=== PATIENT | male | born 1945 | race Hispanic/Latino ===

== ENCOUNTER 2016-12-08 09:33 | Inpatient (IN) | payer MEDICARE ==
[2016-12-08 10:01] LABS: #Eosinphils 0.1 thou/uL (0.0-0.7); #Lymphocytes 1.3 thou/uL (1.20-3.40); #Monocytes 0.5 thou/uL (0.11-0.59); #Neutrophils 8.2 thou/uL (1.40-6.50); %Basophils 0.3 % (0.0-1.0); %Eosinophils 0.8 % (0.0-10.0); %Lymphocytes 12.6 % (21.0-51.0); %Monocytes 4.6 % (0.0-10.0); Hematocrit 40.7 % (42.0-52.0); Mean Platelet Volume 6.4 fL (7.4-10.4); Red Blood Cell (RBC) Count 4.23 mill/uL (4.70-6.10); White Blood Cell (WBC) Count 10.1 thou/uL (4.8-10.8)
[2016-12-08] MEDS ORDERED: methylPREDNISolone Sod Succ/PF 125 MG/2 ML VIAL ONE (10:16)
[2016-12-08] MEDS ORDERED: Water For Inject, Bacteriostat 30 ML ONE (10:16)
--- NOTE | 2016-12-08 10:22 | RAD ---
PORTABLE CHEST ONE VIEW: Date: 12-08-16 Time: 10:08 a.m. History: Dyspnea. FINDINGS/IMPRESSION: There are no previous exams for comparison. The heart size is borderline. There are prominent inters titial markings on both sides which may be due to acute or chronic changes. There are degenerative c hanges in the spine. No pneumothoraces or large effusions are seen. There is no lobar consolidation. POS: [facility]
[2016-12-08 10:26] LABS: Troponin I Less than 0.010 ng/mL (< 0.028)
[2016-12-08 10:31] LABS: ALT (SGPT) 12 U/L (8-55); AST (SGOT) 22 U/L (5-34); Alkaline Phosphatase 98 U/L (40-150); Anion Gap 14 mmol/L (10-20); BUN (Urea Nitrogen) 20 mg/dL (8.4-25.7); Bilirubin, Total 0.9 mg/dL (0.2-1.2); CK (CPK) 35 U/L (30-200); Calc. Creatinine Clearance 0 mL/min (70-130); Carbon Dioxide 26 mmol/L (23-31); Chloride 101 mmol/L (98-107); Estimated GFR-MDRD 55; Globulin 5.7 g/dL (2.4-3.5); Lipase 36 U/L (8-78); Protein, Total 9.1 g/dL (5.8-8.1)
--- NOTE | 2016-12-08 12:23 | CT ---
CT ARTERIOGRAM CHEST WITH IV CONTRAST AND 3D MIP IMAGING: HISTORY: Worsening dyspnea. FINDINGS: There is good contrast opacification of the pulmonary arteries and thoracic aorta with normal branch ing of the great vessels from the aortic arch. There is calcification in the arterial structures. Extensive interstitial thickening and scarring with extensive bilateral honeycombing is present thro ughout each lung. Slightly enlarged lymph nodes throughout the mediastinum measuring up to 2.0 cm g reatest diameter at the precarinal level. Within the partially visualized upper abdomen, there is e nlargement of the spleen and nodular contour of the liver. IMPRESSION: 1. No CT evidence of pulmonary embolus. 2. Severe interstitial lung disease with end stage honeycombing. 3. Nonspecific enlarged lymph nodes scattered throughout the mediastinum. 4. Atherosclerosis. 5. Cirrhosis. POS: [facility]
[2016-12-08] MEDS ORDERED: ISOVUE-370 76%-LOCM 1 ML ONE (15:00)
[2016-12-08] MEDS ORDERED: Dextrose 5% in Water 1,000 ML IV PRN (15:44)
[2016-12-08] MEDS ORDERED: HumaLOG 300 UNITS/3 ML VIAL SC PRN (15:44)
[2016-12-08] MEDS ORDERED: Dextrose 50% Abboject 50 ML SYRINGE SLOW IVP PRN (15:44)
[2016-12-08] MEDS ORDERED: Ondansetron ODT 4 MG TAB PO PRN (15:44)
[2016-12-08 16:06] LABS: Oxyhemoglobin 95.7 % (94.0-97.0); Sodium 138 mmol/L (135-148)
[2016-12-08 16:08] LABS: Mode NC; Modified Allen's Test POSITIVE; Vent NO
[2016-12-08 17:01] VITALS: BMI 21.0
[2016-12-08] MEDS ORDERED: Bisacodyl 5 MG TAB PO PRN (19:02)
--- NOTE | 2016-12-09 01:11 | HP-2 ---
CODE STATUS: DNR/DNI. PRIMARY CARE PHYSICIAN: Lamine Nicole D.O., at [facility]. ATTENDING PHYSICIAN: Kellie Marin M.D. PGY1: Bree Eli D.O. CHIEF COMPLAINT: Shortness of breath. HISTORY OF PRESENT ILLNESS: This is a 71-year-old male with past medical history of diabetes mellitus type 2, essential hypertension and hyperlipidemia who presents with progressive shortness of breath for the past 3 weeks, which has worsened over the past couple of days. He also endorses fatigue. He was seen in clinic approximately 2-3 days ago and was provided steroid Dose pack and encouraged to use inhaler. He has used his inhaler multiple times within the past few days and found no relief of symptoms. Over the past 6 months, he has lost 20 pounds. Two weeks ago, he lost his appetite and has been unable to eat adequate amount of food. Symptoms are associated with dry cough, which is worse at night. In the ER, he was given nebulizer treatment, which provided no relief in the symptoms. Of note, Dr. Anthony, dumper bailer operator was consulted in the Emergency Department after CT was reviewed and showed evidence of severe end -stage interstitial lung disease. Dr. Anthony stated that patient could be seen outpatient as long as he was not hypoxic. However, the patient was hypoxic at 85% on room air and was requiring supplemental oxygen. PAST MEDICAL HISTORY: 1. Type 2 diabetes mellitus with mononeuropathy. 2. Diabetic nephropathy. 3. Essential hypertension. 4. Hyperlipidemia. PAST SURGICAL HISTORY: None. ALLERGIES: No known drug allergies. MEDICATIONS: 1. Amlodipine 5 mg daily. 2. Glyburide-metformin 5-500 mg b.i.d. 3. Losartan 50 mg daily. 4. Aspirin 81 mg daily. 5. Gabapentin 300 mg t.i.d. 6. Atorvastatin 40 mg daily. 7. Proventil HFA 90 mcg 2 puff inhalation q.4 hours p.r.n. FAMILY HISTORY: Brother and sister with diabetes mellitus type 2. SOCIAL HISTORY: The patient is a former smoker. He smoked half a pack per day for 30 years and quit in the . He endorses drinking 16 ounces of beer every evening. He denies any drug use. Of note, patient worked in construction. REVIEW OF SYSTEMS: A 12-point review of systems was performed. All were negative except as listed in the HPI and as indicated below. The patient endorses 20-pound weight loss in the last 6 months, severe fatigue and cough which has recently been productive, shortness of breath and exercise intolerance , paroxysmal nocturnal dyspnea, orthopnea, pain in calves when walking and neuropathy. PHYSICAL EXAMINATION: VITAL SIGNS: Blood pressure 121/69, pulse 62, respiratory rate 20, T-max 97.6 and pulse ox 95% on 2 liters. Current weight 59 kilograms. GENERAL: Patient is alert and oriented x3, no acute distress. He is appropriately interactive. EYES: Pupils are equally round and reactive to light and accommodation. Extraocular muscles are intact. Conjunctivae within normal limits. ENT: Nasal mucosa within normal limits. Oropharynx within normal limits. Of note, the patient has poor dentition. NECK: Neck is supple, without lymphadenopathy, thyromegaly or bruits. CARDIOVASCULAR: Regular rate and rhythm, 2/6 systolic murmur. No gallop. Radial pulses and pedal pulses are weak. RESPIRATORY: Normal respiratory effort. No retractions. Patient has Velcro rales diffusely throughout posterior lungs. SKIN: Skin is warm and dry. No cyanosis, no lesions; however, there is decreased hair growth in the lower extremities bilaterally. Extremities are cool to touch. The patient does have several tattoos. ABDOMEN: Abdomen is soft and nontender to palpation. Bowel sounds positive in all 4 quadrants. No masses or distention. No CVA tenderness. EXTREMITIES: No clubbing, cyanosis or edema. MUSCULOSKELETAL: Structure within normal limits. Tone within normal limits. The patient has full range of motion. NEUROLOGIC: No focal deficits. The patient does have neuropathy bilateral lower extremities. Cranial nerves II-XII intact. GCS 15. PSYCHIATRIC: Appropriate. LABORATORY AND IMAGING DATA: 1. CBC: White blood cell count 10.1, hemoglobin 13.9, hematocrit 40.7 and platelets 243. 2. CMP: Sodium 137, potassium 4.2, chloride 101, bicarb 26, BUN 20, creatinine 1.28, glucose 179, calcium 10, total bilirubin 0.9, total protein 9.2 , albumin 3.4, AST 22, ALT 12 and alkaline phosphatase 98. 3. CPK 35. 4. CK-MB 0.8, troponin less than 0.010. 5. Lipase 36. 6. BNP 85.2. 7. D-dimer 1.87. 8. Chest x-ray shows prominent interstitial markings on both sides. 9. CT angio shows no pulmonary embolism; however, there is severe interstitial lung disease with end-stage honeycombing and nonspecific enlarged lymph nodes throughout the mediastinum. There was also cirrhosis of the liver noted on CT. ASSESSMENT AND PLAN: This is a 71-year-old male with past medical history of diabetes mellitus, hypertension and hyperlipidemia who presents with progressive shortness of breath. 1. Acute hypoxic respiratory failure secondary to interstitial lung disease. The patient is requiring supplemental oxygen. We will admit him to Medical with inpatient status. A CTA did show end-stage honeycombing with interstitial lung disease and chest x-ray showed bilateral infiltrates. The patient will require oxygen as outpatient and it would be worthwhile to consider outpatient PFTs to get a baseline of the patient's current pulmonary function. Pulmonology was consulted in the ED, they recommended outpatient pulmonology treatment if saturations were sufficient. The patient was admitted for oxygen, but it would be appropriate to send him home on oxygen with outpatient followup. The patient has not already received flu and pneumonia vaccine, this will be recommended at this time. The patient also had ABG obtained. Those results are pending at this time. 2. Interstitial lung disease pattern consistent with pulmonary fibrosis which is chronic process. The patient will require supplemental oxygen and close followup with outpatient pulmonology. Outpatient PFT's strongly advised. 3. Diabetes mellitus type 2. We will continue patient on home medications and place him on a mild sliding scale insulin. 4. Essential hypertension. We will continue amlodipine. 5. Hyperlipidemia. We will continue atorvastatin and losartan. 6. Diabetic neuropathy. We will continue gabapentin. 7. Liver cirrhosis. The patient does not have a documented history of cirrhosis. This was evident on the CTA that was performed to rule out pulmonary embolism. He has a longstanding history of EtOH use. This will require outpatient followup. Disposition and length of hospital stay 2 days. Symptomatic medications will be provided. History and physical exam as well as management discussed with Dr. Kellie Marin. PHILIP
[2016-12-09 06:11] LABS: #Monocytes 0.4 thou/uL (0.11-0.59); #Neutrophils 6.9 thou/uL (1.40-6.50); %Eosinophils 0.1 % (0.0-10.0); Hematocrit 39.3 % (42.0-52.0); Mean Platelet Volume 6.3 fL (7.4-10.4); Red Blood Cell (RBC) Count 4.04 mill/uL (4.70-6.10); White Blood Cell (WBC) Count 8.3 thou/uL (4.8-10.8)
[2016-12-09 06:26] LABS: Anion Gap 11 mmol/L (10-20); BUN (Urea Nitrogen) 24 mg/dL (8.4-25.7); Calc. Creatinine Clearance 57 mL/min (70-130); Calcium 9.6 mg/dL (7.8-10.44); Carbon Dioxide 28 mmol/L (23-31); Chloride 103 mmol/L (98-107); Estimated GFR-MDRD 73
--- NOTE | 2016-12-09 08:47 | PDOC.FM ---
- Subjective Subjective: Patient states he had a good night and his breathing is unchanged. He is requiring oxygen, but does complain of a cough. He denies fever, chills, chest pain. He denies n/v/d. - Objective Vital Signs & Weight: Vital Signs (12 hours) Temp Pulse Resp BP Pulse Ox 12/09/16 08:31 94 L 12/09/16 08:00 97.4 F L 54 L 18 96 12/09/16 07:25 97.4 F L 54 L 18 131/60 12/09/16 03:14 97 Weight Weight 61.054 kg I&O: 12/08/16 12/09/16 12/10/16 06:59 06:59 06:59 Intake Total 480 Balance 480 Result Diagrams: 12/09/16 05:29 12/09/16 05:29 <Aubrey Hurley - Last Filed: 12/09/16 11:07> - Objective Vital Signs & Weight: Vital Signs (12 hours) Temp Pulse Resp BP BP Pulse Ox 12/10/16 11:30 98.1 F 72 20 110/64 98 12/10/16 08:21 60 120/60 12/10/16 08:00 98.3 F 60 20 120/60 94 L Weight Admit Weight 60.781 kg Weight 61.054 kg I&O: 12/09/16 12/10/16 12/11/16 06:59 06:59 06:59 Intake Total 480 960 490 Balance 480 960 490 Result Diagrams: 12/09/16 05:29 12/09/16 05:29 <Eliud Reyes - Last Filed: 12/10/16 13:52> Phys Exam - Physical Examination HEENT: PERRLA, moist MMs Neck: no nodes, no JVD Velcro like rales throughout lungs Cardiovascular: RRR systolic murmur noted Gastrointestinal: soft, non-tender, positive bowel sounds Musculoskeletal: no edema, pulses present Neurological: non-focal, moves all 4 limbs Psychiatric: normal affect, A&O x 3 <Aubrey Hurley - Last Filed: 12/09/16 11:07> Dx/Plan (1) Acute respiratory failure with hypoxia Code(s): J96.01 - ACUTE RESPIRATORY FAILURE WITH HYPOXIA Status: Acute Plan: -End stage interstitial lung disease. -Will require supplemental O2 24hrs a day. (2) Pulmonary fibrosis Code(s): J84.10 - PULMONARY FIBROSIS, UNSPECIFIED Status: Acute Plan: -Evidence on CT showed end stage disease -Supplemental oxygen therapy -close outpatient follow up (3) DM2 (diabetes mellitus, type 2) Status: Acute Plan: -Continue home meds -Sliding scale -accuchecks (4) HTN (hypertension) Code(s): I10 - ESSENTIAL (PRIMARY) HYPERTENSION Status: Acute Plan: Continue home meds (5) HLD (hyperlipidemia) Code(s): E78.5 - HYPERLIPIDEMIA, UNSPECIFIED Status: Acute Plan: Continue home meds (6) Diabetic neuropathy Code(s): E11.40 - TYPE 2 DIABETES MELLITUS WITH DIABETIC NEUROPATHY, UNSP Status: Acute Plan: Continue home meds (7) Liver cirrhosis Code(s): K74.60 - UNSPECIFIED CIRRHOSIS OF LIVER Status: Acute Plan: -Evidence found on CT -Long history of alcohol use. -Recommend outpatient follow up (8) Murmur, cardiac Code(s): R01.1 - CARDIAC MURMUR, UNSPECIFIED Status: Acute Plan: -likely secondary to pulmonary htn from fibrosis -ECHO pending - Plan Plan: Patient will be getting case management consult for outpatient oxygen supplementation. Discharge planning will be made from there. <Aubrey Hurley - Last Filed: 12/09/16 11:07> Attending Addendum - Attending Addendum I personally evaluated the patient and discussed the management on DOS 12/09/[address] Hulrey. I agree with the History, Examination, Assessment and Plan documented above with any addition or exceptions noted below. With Oxygen per NC@ 2L/min he is breathing comfortably with SaO2 94-98%. Exam: Dry rales in both mid to lower lobes. CXR shows a reticular nodular pattern and CT shows impressive and extensive honeycomb pattern. 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 P: Make arrangements for Oxygen at home for continuous use. Follow up with PCP and with Pulmonary medicine as outpatient. Stable for discharge when home Oxygen arranged. [facility] <Eliud Reyes - Last Filed: 12/10/16 13:52>
--- NOTE | 2016-12-10 05:44 | PDOC.FM ---
- Subjective Subjective: Mr. Bond is doing well today, he states he feels much better on continuous O2. Denies fevers, chills, n/v/d/abd pain. Endorses decreased dyspnea compared to admission. - Objective MAR Reviewed: Yes Vital Signs & Weight: Vital Signs (12 hours) Temp Pulse Resp BP Pulse Ox 12/10/16 01:42 94 L 12/09/16 20:00 97.9 F 54 L 18 96 12/09/16 19:28 97.9 F 54 L 20 138/63 92 L Weight Admit Weight 60.781 kg Weight 61.054 kg I&O: 12/08/16 12/09/16 12/10/16 06:59 06:59 06:59 Intake Total 480 960 Balance 480 960 Result Diagrams: 12/09/16 05:29 12/09/16 05:29 Radiology Reviewed by me: Yes <Duc Menard - Last Filed: 12/10/16 07:31> - Objective Vital Signs & Weight: Vital Signs (12 hours) Temp Pulse Resp BP BP Pulse Ox 12/10/16 11:30 98.1 F 72 20 110/64 98 12/10/16 08:21 60 120/60 12/10/16 08:00 98.3 F 60 20 120/60 94 L 12/10/16 01:42 94 L Weight Admit Weight 134 lb Weight 134 lb 9.6 oz I&O: 12/09/16 12/10/16 12/11/16 06:59 06:59 06:59 Intake Total 480 960 490 Balance 480 960 490 Result Diagrams: 12/09/16 05:29 12/09/16 05:29 <Brea Del Cid - Last Filed: 12/10/16 13:17> Phys Exam - Physical Examination Constitutional: NAD HEENT: PERRLA, moist MMs Neck: supple, full ROM diffuse rales bilaterally Cardiovascular: RRR, no rub, gallop 2/6 systolic murmur Gastrointestinal: soft, non-tender, no distention, positive bowel sounds Musculoskeletal: no edema, pulses present Neurological: normal sensation, moves all 4 limbs Psychiatric: normal affect, A&O x 3 <Duc Menard - Last Filed: 12/10/16 07:31> Dx/Plan (1) Acute respiratory failure with hypoxia Code(s): J96.01 - ACUTE RESPIRATORY FAILURE WITH HYPOXIA Status: Acute Plan: -Severe End-Stage Interstitial Lung Disease -Approved for home 02, supplies already scheduled to be delivered to home -will stay on 24hr a day home 02 (2) Pulmonary fibrosis Code(s): J84.10 - PULMONARY FIBROSIS, UNSPECIFIED Status: Acute Plan: -Evidence on CT showed end stage disease -supplemental 02 -will require close OP f/u (3) DM2 (diabetes mellitus, type 2) Status: Acute Plan: -continue home meds, SSI, accucheck (4) HTN (hypertension) Code(s): I10 - ESSENTIAL (PRIMARY) HYPERTENSION Status: Acute Plan: -Cont home meds (5) HLD (hyperlipidemia) Code(s): E78.5 - HYPERLIPIDEMIA, UNSPECIFIED Status: Acute Plan: -cont home meds (6) Diabetic neuropathy Code(s): E11.40 - TYPE 2 DIABETES MELLITUS WITH DIABETIC NEUROPATHY, UNSP Status: Acute Plan: -cont home meds (7) Liver cirrhosis Code(s): K74.60 - UNSPECIFIED CIRRHOSIS OF LIVER Status: Acute Plan: -CT findings suspicious for cirrhosis -long hx of alcohol use -recommend OP f/u (8) Murmur, cardiac Code(s): R01.1 - CARDIAC MURMUR, UNSPECIFIED Status: Acute Plan: ECHO shows EF of 50-55%, mild to mod TR, otherwise normal. - Plan Plan: Patient set up with supplemental home 02. Patient ready for Discharge today. <Duc Menard - Last Filed: 12/10/16 07:31> Attending Addendum - Attending Addendum I personally evaluated the patient and discussed the management with Dr. Menard. I agree with the History, Examination, Assessment and Plan documented above with any addition or exceptions noted below. Patient newly diagnosed with endstage severe interstitial lung disease and started on oxygen. Doing much better on oxygen and is ready for discharge. He will see enterprise account manager for outpatient evaluation. <Brea Del Cid - Last Filed: 12/10/16 13:17>
[2016-12-10] MEDS ORDERED: PROVENTIL INHALER 6.7 G (200 INHALATIONS) INH PRN (06:35)
[2016-12-10] MEDS ORDERED: PREDNISONE 5 MG PO SCH (06:45)
[2016-12-10] MEDS ORDERED: Non-Formulary Item 1 EACH (Glyburide/Metformin Hcl [Glyburide/Metformin] 1 TABLET) PO SCH (08:00)
[2016-12-10] MEDS ORDERED: glyBURIDE 5 MG TAB PO SCH (08:00)
[2016-12-10] MEDS ORDERED: Gabapentin 300 MG CAP PO SCH (09:00)
[2016-12-10] MEDS ORDERED: Losartan Potassium 25 MG TAB PO SCH (09:00)
[2016-12-10 11:31] VITALS: BP 110/64; TEMP 98.1
--- NOTE | 2016-12-10 13:10 | DIS-2 ---
DATE OF ADMISSION: 12/08/2016 DATE OF DISCHARGE: 12/10/2016 RESIDENT: Duc Menard MD ADMITTING ATTENDING: Dr. Kellie Marin M.D DISCHARGE ATTENDING: Dr. Del Cid. CONSULTATIONS: Case management. ER doctors spoke to Dr. Anthony, the cell stripper final in the ER, and discussed the CT findings with him. Dr. Anthony wanted the patient to follow up in the clinic on an outpatient basis with home O2. PROCEDURES: 1. Chest x-ray. Impression. Heart size is borderline, prominent interstitial markings on both sides, which may be due to acute or chronic changes. Degenerative changes of the spine. No pneumothoraces or large effusions are seen. No lobar consolidation. 2. Chest/thorax CTA. Impression: No evidence of pulmonary embolus. Severe interstitial lung disease with end-stage honeycombing, nonspecific enlarged lymph nodes scattered throughout the mediastinum, atherosclerosis, and cirrhosis. 3. Echocardiogram showed ejection fraction 50% to 55%. Left atrium is moderately dilated. Normal right atrium size, trace mitral regurgitation, mild to moderate right tricuspid regurgitation, and mild pulmonic regurgitation present. PRIMARY DIAGNOSES: 1. Acute respiratory failure with hypoxia. 2. Pulmonary fibrosis. SECONDARY DIAGNOSES: 1. Type 2 diabetes mellitus. 2. Hypertension. 3. Hyperlipidemia. 4. Diabetic neuropathy. 5. Liver cirrhosis. 6. Cardiac murmur. DISCHARGE MEDICATIONS: 1. Prednisone 5 mg Dosepak. 2. Atorvastatin 40 mg p.o. at bedtime. 3. Albuterol sulfate 2 puffs INH q.4 hours p.r.n. 4. Gabapentin 300 mg p.o. t.i.d. 5. Aspirin 81 mg p.o. daily. 6. Losartan potassium 50 mg p.o. daily. 7. Glyburide/metformin HCL 5/500 mg tablet 1 tablet p.o. b.i.d. with meals. 8. Amlodipine 5 mg p.o. daily. 9. Glucerna shake 237 mL p.o. DISCONTINUED MEDICATIONS: 1. Solu-Medrol. 2. DuoNeb. 3. Dulcolax. HISTORY OF PRESENT ILLNESS AND HOSPITAL COURSE: Mr. Yolanda Bond is a 71- year-old male with past medical history of type 2 diabetes, essential hypertension, hyperlipidemia, who presented to the ER with progressive shortness of breath for the last 3 weeks, which had worsened even more over the last couple of days. He also endorses fatigue. He was seen in the clinic recently approximately 2-3 days before admission and given a steroid Dosepak and was encouraged to use inhaler. The inhaler did not provide him much relief over the last couple days. Over the past 6 months, he had lost 20 pounds, and about 2 weeks ago, he lost his appetite and was unable to eat adequate amounts of food. He has had a dry cough, which has been worse at night and in the ER, he was given nebulizer treatment, which provided minimal relief. Dr. Anthony, cell stripper final, was consulted in the ED after CT was reviewed and showed evidence of severe end-stage interstitial lung disease. Dr. Anthony stated that patient could be seen outpatient as long as he was stable. In the ER, the patient was hypoxic at 85% on room air and was requiring supplemental oxygen. Case management was involved early and was able to get the patient home O2 and by day of discharge on 12/10/2016, the patient was set up with home supplies and oxygen in the hospital. The patient's O2 sats were anywhere from 92-98 on 2 liters of oxygen. The patient's vitals are otherwise stable and within normal limits throughout admission. On the day of discharge, the patient states he was feeling much better after being on his O2 continuously. He was discharged with a Glucerna shake for added calories. The patient was in agreement with plan to have close followup with primary care physician and Dr. Anthony, cell stripper final. DISPOSITION: Guarded. DISCHARGE INSTRUCTIONS: 1. Location: Home. 2. Diet: Heart healthy and diabetic diet. 3. Activity: As tolerated. 4. Follow up with primary care physician and Dr. Anthony within 3-5 days. PHILIP
[2016-12-10] MEDS ORDERED: Atorvastatin Calcium 40 MG TAB PO SCH (21:00)
== END 2016-12-10 12:55 | disposition home or self-care (01) | DRG 196 ==
LOC: ERS 09:33 → ONC 13:37
PROVIDERS: ADMIT Family Medicine; ATTEND Family Medicine
DX: J84.10 Pulmonary fibrosis, unspecified (principal); J96.01 Acute respiratory failure with hypoxia; E11.40 Type 2 diabetes mellitus with diabetic neuropathy, unspecified; I10 Essential (primary) hypertension; I08.1 Rheumatic disorders of both mitral and tricuspid valves; K74.60 Unspecified cirrhosis of liver; J44.9 Chronic obstructive pulmonary disease, unspecified; R01.1 Cardiac murmur, unspecified; E78.5 Hyperlipidemia, unspecified; Z66 Do not resuscitate; Z87.891 Personal history of nicotine dependence; Z83.3 Family history of diabetes mellitus
CPT/HCPCS: 36415; 36416; 71010; 71275; 80048; 80053; 82553; 82607; 82805; 83690; 83880; 84484; 85025; 85379; 93005; 93306; 94640; 94760; 96374; A4216; G8978-GP-CK; G8979-GP-CK; G8980-GP-CK; G8987-GO-CI; G8988-GO-CI; G8989-GO-CI; J2930; J7620

== ENCOUNTER 2017-03-22 21:12 | Inpatient (IN) | payer MEDICARE ==
--- NOTE | 2017-03-22 22:14 | RAD ---
PORTABLE AP CHEST X-RAY 03/22/17 HISTORY: Dyspnea. Patient reports shortness of breath for three to four months. COMPARISON: 12/08/16. FINDINGS: Again noted are increased interstitial opacities seen throughout the lungs bilaterally with findings suggestive of areas of honeycombing primarily at each lung base, but also in the left mid lung zone a nd to a lesser extent right upper lung zone. There is slightly greater patchy parenchymal changes pre sent in the left perihilar region on today's examination which could be related to more acute infecti ous process. No pleural effusion is seen. The cardiac silhouette is stable in size. Vascular calcific ations are seen in a tortuous thoracic aorta. IMPRESSION: 1. Extensive interstitial fibrotic lung changes with honeycombing. 2. Given extensive parenchymal lung changes, an acute process would be difficult to exclude, but there is greater patchy increased density in the left perihilar region which may represent superimpo sed more acute infectious process. Followup evaluation is recommended. POS: [facility]
[2017-03-22 23:31] LABS: #Lymphocytes 0.7 thou/uL (1.20-3.40); #Monocytes 0.4 thou/uL (0.11-0.59); #Neutrophils 10.4 thou/uL (1.40-6.50); %Basophils 0.1 % (0.0-1.0); %Eosinophils 0.2 % (0.0-10.0); %Lymphocytes 6.1 % (21.0-51.0); %Monocytes 3.1 % (0.0-10.0); %Neutrophils 90.5 % (42.0-75.0); Hemoglobin 10.2 g/dL (14.0-18.0); Mean Corpuscular HGB CONC 33.3 g/dL (32.0-36.0); Mean Corpuscular Hemoglobin 32.7 pg (27.0-31.0); Mean Corpuscular Volume 98.2 fl (80.0-94.0); Mean Platelet Volume 6.3 fL (7.4-10.4); Platelet Count 367 thou/uL (130-400); RBC Distribution Width 12.7 % (11.5-14.5); Red Blood Cell (RBC) Count 3.12 mill/uL (4.70-6.10); White Blood Cell (WBC) Count 11.5 thou/uL (4.8-10.8)
[2017-03-22 23:52] LABS: ALT (SGPT) 11 U/L (8-55); AST (SGOT) 20 U/L (5-34); Albumin 2.6 g/dL (3.4-4.8); Alkaline Phosphatase 102 U/L (40-150); Anion Gap 16 mmol/L (10-20); BUN (Urea Nitrogen) 20 mg/dL (8.4-25.7); Bilirubin, Total 0.4 mg/dL (0.2-1.2); Calc. Creatinine Clearance 0 mL/min (70-130); Calcium 10.3 mg/dL (7.8-10.44); Carbon Dioxide 26 mmol/L (23-31); Chloride 99 mmol/L (98-107); Estimated GFR-MDRD 81; Globulin 5.7 g/dL (2.4-3.5); Glucose 175 mg/dL (83-110); Potassium 4.1 mmol/L (3.5-5.1); Protein, Total 8.3 g/dL (5.8-8.1); Sodium 137 mmol/L (136-145)
[2017-03-23 01:54] VITALS: BMI 15.9
[2017-03-23] MEDS ORDERED: Guaifenesin DM 100-10/5 ML UDCUP PO PRN (02:01)
[2017-03-23] MEDS ORDERED: Dextrose 5% in Water 1,000 ML IV PRN (02:01)
[2017-03-23] MEDS ORDERED: Dextrose 50% Abboject 50 ML SYRINGE SLOW IVP PRN (02:01)
[2017-03-23] MEDS ORDERED: Sodium Chloride 0.9% 500 ML IV SCH (02:45)
[2017-03-23] MEDS: Sodium Chloride 0.9% 1,000 ML IV SCH ×2 (03:00→12:48)
[2017-03-23 03:05] LABS: #Lymphocytes 0.8 thou/uL (1.20-3.40); #Monocytes 0.3 thou/uL (0.11-0.59); #Neutrophils 8.6 thou/uL (1.40-6.50); %Eosinophils 0.2 % (0.0-10.0); %Monocytes 3.2 % (0.0-10.0); %Neutrophils 88.6 % (42.0-75.0); Hemoglobin 9.8 g/dL (14.0-18.0); Mean Corpuscular HGB CONC 32.8 g/dL (32.0-36.0); Mean Corpuscular Hemoglobin 31.9 pg (27.0-31.0); Mean Corpuscular Volume 97.2 fl (80.0-94.0); Mean Platelet Volume 5.9 fL (7.4-10.4); Platelet Count 270 thou/uL (130-400); RBC Distribution Width 12.5 % (11.5-14.5); Red Blood Cell (RBC) Count 3.06 mill/uL (4.70-6.10); White Blood Cell (WBC) Count 9.7 thou/uL (4.8-10.8)
[2017-03-23 03:23] LABS: Lactic Acid 2.1 mmol/L (0.5-2.2)
[2017-03-23 03:36] LABS: Anion Gap 12 mmol/L (10-20); BUN (Urea Nitrogen) 21 mg/dL (8.4-25.7); Calc. Creatinine Clearance 52 mL/min (70-130); Calcium 8.9 mg/dL (7.8-10.44); Carbon Dioxide 28 mmol/L (23-31); Chloride 102 mmol/L (98-107); Estimated GFR-MDRD Greater than 90; Glucose 174 mg/dL (83-110); Sodium 138 mmol/L (136-145)
--- NOTE | 2017-03-23 06:22 | HP-2 ---
DATE OF ADMISSION: 03/23/2017 CODE STATUS: FULL. PRIMARY CARE PHYSICIAN: Salvador Hunter D.O. ATTENDING PHYSICIAN: Kellie Marin M.D. RESIDENT: Reshma Ramey M.D. CHIEF COMPLAINT: Shortness of breath. HISTORY OF PRESENT ILLNESS: A 71-year-old male with past medical history of pulmonary fibrosis, diabetes type 2, hypertension, who presents complaining of shortness of breath that started getting worse several weeks ago and he has been coughing, but that has been getting worse and productive of brown sputum that is foul smelling. The patient reports no fevers. He reports that his inhaler makes the shortness of breath better, walking makes it worse. He also reports that his ribs hurt from coughing and his shortness of breath is worse when he lies down because he feels like he has to cough more. He wakes up at night coughing often. The patient reports that his throat feels tight and then he has lost 30 pounds in the past couple of months. In the ER, he was given Levaquin 750 mg and DuoNeb. PAST MEDICAL HISTORY: 1. Interstitial lung disease. 2. Normocytic anemia. 3. Diabetes type 2 with neuropathy. 4. Hypertension. 5. Chronic obstructive pulmonary disease. 6. History of tobacco abuse. PAST SURGICAL HISTORY: None. ALLERGIES: No known drug allergies. MEDICATIONS: 1. Amlodipine 5 mg p.o. daily. 2. Glyburide and metformin 5/500 mg p.o. b.i.d. 3. Losartan 50 mg p.o. daily. 4. Aspirin 81 mg p.o. daily. 5. Proventil HFA 2 puffs q.4 hours p.r.n. shortness of breath and cough. 6. Mometasone two puffs q.12 hours. 7. Spiriva HandiHaler 18 mcg 1 capsule inhaled daily. FAMILY HISTORY: Diabetes type 2. SOCIAL HISTORY: Reports he used to smoke half a pack a day for about 30 years and quit 25 years ago. Denies alcohol or drug use. REVIEW OF SYSTEMS: General: Negative for fever or chills. Positive for weight and appetite change with decreased weight and decreased appetite. Eyes: Positive for worsened vision. Negative for eye pain. ENT: Positive for rhinorrhea, negative for sore throat, positive for dysphagia. Respiratory: Positive for cough and shortness of breath. Cardiovascular: Negative for chest pain or edema. Gastrointestinal: Negative for nausea, vomiting, diarrhea , abdominal pain. Genitourinary: Negative for dysuria, polyuria. Skin: Negative for rashes or lesions. Musculoskeletal: Negative for pain or tenderness. Neurologic: Negative for weakness, numbness. PHYSICAL EXAMINATION: VITAL SIGNS: Blood pressure 102/62, pulse 110, respiratory rate 22, temperature 98.0, pulse ox 98% on 2 liters. Current weight 53.98 kilograms. GENERAL: Alert and oriented x3, in no acute distress. Thin, appropriately interactive. HEENT: Eyes: PERRLA. Extraocular muscles intact. Conjunctiva within normal limits. ENT: Nasal mucosa and oropharynx within normal limits. NECK: Supple, no lymphadenopathy. CARDIOVASCULAR: Tachycardic, regular rhythm, no murmurs, gallops, 2+ radial and pedal pulses. RESPIRATORY: On 2 liters oxygen increased respiratory effort. Rales in all lung plascencia. Barrel chest. SKIN: Warm and dry. No cyanosis or lesions. ABDOMEN: Scaphoid abdomen. Soft, nontender to palpation, normoactive bowel sounds. No mass or distention. EXTREMITIES: Clubbing, no cyanosis or edema. MUSCULOSKELETAL: Structure within normal limits. Decreased tone. Full range of motion. NEUROLOGIC: No focal deficits. Sensation within normal limits. PSYCHIATRIC: Appropriate. LABORATORY DATA: WBC 11.5, hemoglobin 10.2, hematocrit 30.6, platelets 367, 90.5% neutrophils. Sodium 137, potassium 4.1, chloride 99, CO2 of 26, BUN 20, creatinine 0.92, GFR 81, glucose 175, calcium 10.3, total protein 8.3, albumin 2.6, total bilirubin 0.4, AST 20, ALT 11, alkaline phosphatase 102, lactic acid 2.5. Chest x-ray showed extensive interstitial fibrotic lung with an incoming, greater patchy increased density in the left perihilar region, which may represent superimposed more acute infectious process. ASSESSMENT AND PLAN: This is a 71-year-old male presents with: 1. Community-acquired pneumonia. The patient has mild leukocytosis and elevated lactic acid as well as a potential new infiltrate on chest x-ray versus worsened interstitial fibrosis. We will treat with Levaquin and check blood cultures. Repeat lactic acid. Will check procalcitonin. Given NS at 100 mL per hour. 2. Dysphagia with patient having a 30-pound weight loss. The patient reports that he has been chewing up his meds and has difficulty swallowing even liquids. I will consult Speech. The patient will likely benefit from barium swallow. 3. Interstitial lung disease. The patient is on 2 to 3 liters of oxygen at home. We will continue home inhalers. Consult Dr. Anthony in the morning to get recommendations as patient's symptoms could just be disease progression of fibrosis. Give DuoNebs as needed. 4. Elevated lactic acid. The patient has not been drinking much, this could be secondary to dehydration versus infection with community-acquired pneumonia. We will give 500 mL bolus followed by NS at 100 mL per hour and recheck. 5. Leukocytosis, likely secondary to community-acquired pneumonia. We will monitor. Treat with fluids, Levaquin. 6. Normocytic anemia, chronic, stable. We will monitor. 7. Diabetes type 2 with neuropathy. Continue home medications. Accu-Cheks a.c. and at bedtime, consistent carbohydrate diet. 8. Hypertension, well controlled. Continue home medications. 9. Chronic obstructive pulmonary disease. Continue home medications, DuoNebs as needed. 10. Chronic kidney disease stage 2, stable. We will monitor. 11. Venous thromboembolic prophylaxis. The patient is low risk with Pauda score of 3. We will use sequential compression devices. DISPOSITION: Admit to medical. Symptomatic medications will be provided. History and physical exam as well as management discussed with Dr. Marin. PHILIP
[2017-03-23] MEDS ORDERED: Ipratropium Bromide 2.5 ml Neb NEB SCH (07:00)
[2017-03-23] MEDS ORDERED: Spiriva 18 MCG CAP (Box of 5 Caps) INH SCH (07:00)
[2017-03-23] MEDS: Mometasone 100 MCG HFA INHALER INH SCH ×2 (07:20→18:31)
[2017-03-23] MEDS: Amlodipine 5 MG TAB PO SCH (08:20)
[2017-03-23] MEDS: Losartan 25 MG TAB PO SCH (08:20)
[2017-03-23] MEDS: glyBURIDE 5 MG TAB PO SCH (08:20)
[2017-03-23] MEDS: metFORMIN 500 MG TAB PO SCH ×2 (08:20→17:16)
--- NOTE | 2017-03-23 14:14 | CON ---
DATE OF CONSULTATION: 03/23/2017 HISTORY: This is a 71-year-old gentleman who saw Dr. Montoya in the office one time. Boom garcia has got idiopathic pulmonary fibrosis. He presented last night with shortness of breath and cough. He has limitation of his activity. In fact, he can barely even walk 20 feet without getting marked ly short of breath. He has a cough with some yellow sputum. No fever or chills. X-ray shows rather extensive interstitial disease. He has lost considerable weight. I reviewed Dr. Anthony's note in the office. There was consideration to start the patient on some Of ev 150 mg twice a day. The patient apparently smoked half pack a day for 30 years, quit smoking many years ago, 25. 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 It is unclear whether he got dust to any silica. PAST MEDICAL HISTORY: Anemia, diabetes, hypertension, history of lung disease, COPD. PAST SURGICAL HISTORY: None. MEDICATIONS: Chronic medication from home includes losartan 50, ProAir HFA, metformin 500, glyburide 2.5, aspirin, lodipine 5. ALLERGIES: None. SOCIAL/FAMILY: Otherwise unremarkable. REVIEW OF SYSTEMS: Ten point negative. PHYSICAL EXAMINATION: VITAL SIGNS: Sats are 97% on 2 liters, temperature 98, blood pressure 120/65. CHEST: Chest revealed extensive crackles. CARDIAC: Normal S1, S2. ABDOMEN: Soft. No masses. LABORATORY DATA: White count 9000, H&H is 9 and 28, platelet count normal. Electrolytes are normal, blood sugar 151. His x-ray as noted shows extensive bilateral pulmonary infiltrates compared to old x-rays, no change. IMPRESSION: 1. Pulmonary fibrosis extensive, possibly some element of silicosis. 2. Diabetes. 3. Abnormal renal function. PLAN: I have added steroids, neb treatments to his regimen. Dr. Anthony will see him tomorrow.
--- NOTE | 2017-03-23 21:40 | PDOC.EVN ---
Event Note - Event Note Event Note: I personally saw and examined the patient. Hostory, exam, assessment ans plan reviewed and discussed with Dr. Ramey. Briefly, this is a 71 year old with history of severe pulmonary fibrosis presented c/o increased SOC, cough productive yellow sputum. Denies any fever or chills. Also c/o difficulty swallowing. Occurs especially with pills but also with some other solids. No difficulties with liquids. Afebrile VSS CXR extensive interstitial changes; possible infiltrate on left upper lobe. A/P: 1) CAP- continue iv abx. Consult pulmonary. 2) Pulmonary fibrosis- continue O2; await further recs from pulmonary. 3) Dysphagia- will obtain speech therapy eval; may need barium swallow or GI consult to evaluate for stricture.
[2017-03-24] MEDS: Sodium Chloride 0.9% 1,000 ML IV SCH ×3 (00:22→23:43)
[2017-03-24 04:43] LABS: #Lymphocytes 0.5 thou/uL (1.20-3.40); #Neutrophils 3.2 thou/uL (1.40-6.50); %Lymphocytes 12.8 % (21.0-51.0); %Monocytes 0.4 % (0.0-10.0); %Neutrophils 86.8 % (42.0-75.0); Mean Corpuscular HGB CONC 32.8 g/dL (32.0-36.0); Mean Corpuscular Hemoglobin 31.8 pg (27.0-31.0); Mean Corpuscular Volume 96.9 fl (80.0-94.0); Mean Platelet Volume 6.3 fL (7.4-10.4); Platelet Count 242 thou/uL (130-400); RBC Distribution Width 12.5 % (11.5-14.5); Red Blood Cell (RBC) Count 2.83 mill/uL (4.70-6.10); White Blood Cell (WBC) Count 3.7 thou/uL (4.8-10.8)
[2017-03-24 05:14] LABS: Anion Gap 11 mmol/L (10-20); BUN (Urea Nitrogen) 12 mg/dL (8.4-25.7); Calc. Creatinine Clearance 63 mL/min (70-130); Carbon Dioxide 29 mmol/L (23-31); Chloride 98 mmol/L (98-107); Estimated GFR-MDRD Greater than 90; Glucose 150 mg/dL (83-110); Sodium 134 mmol/L (136-145)
--- NOTE | 2017-03-24 06:39 | PDOC.FM ---
- Subjective Subjective: Patient states he had a good night. He did have an episode of dyspnea last night that resolved with a Duoneb. He does state he shakes sometimes when he reaches for things. He denies chest pain, n/v/d, fever, or chills. He also notes that his urine has become more clear recently. He states his breathing is improved and his swallowing is basically unchanged. No other concerns this morning. - Objective Vital Signs & Weight: Vital Signs (12 hours) Temp Pulse Resp BP Pulse Ox 03/24/17 04:00 98.1 F 98 18 141/67 H 99 03/24/17 01:43 97.8 F 78 18 125/73 98 03/24/17 00:37 99 03/23/17 20:00 98.1 F 73 18 137/68 99 Weight Admit Weight 46.085 kg Weight 46.085 kg I&O: 03/22/17 03/23/17 03/24/17 06:59 06:59 06:59 Output Total 600 Balance -600 Result Diagrams: 03/24/17 03:50 03/24/17 03:50 <Aubrey Hurley - Last Filed: 03/24/17 08:27> - Objective Vital Signs & Weight: Vital Signs (12 hours) Temp Pulse Pulse Pulse Resp BP BP 03/27/17 11:55 97.8 F 95 16 03/27/17 09:06 86 92 144/76 H 03/27/17 08:42 93 146/77 H 03/27/17 08:00 98.4 F 93 18 03/27/17 07:42 98.4 F 93 18 03/27/17 06:30 78 18 BP BP BP Pulse Ox Pulse Ox Pulse Ox 03/27/17 11:55 153/80 H 99 03/27/17 09:06 146/72 H 100 100 03/27/17 08:42 03/27/17 08:00 95 03/27/17 07:42 146/77 H 95 03/27/17 06:30 99 Weight Admit Weight 46.085 kg Weight 46.085 kg I&O: 03/26/17 03/27/17 03/28/17 06:59 06:59 06:59 Intake Total 1700 2100 1860 Output Total 1625 1200 2000 Balance 75 900 -140 Result Diagrams: 03/27/17 03:49 03/27/17 03:49 <Kellie Marin - Last Filed: 03/27/17 15:21> Phys Exam - Physical Examination HEENT: PERRLA, moist MMs Neck: no nodes Respiratory: wheezing present Bilaterally fine crackles like Velco present Cardiovascular: RRR, no significant murmur Gastrointestinal: soft, non-tender, no distention, positive bowel sounds Musculoskeletal: no edema, pulses present Neurological: non-focal, normal sensation, moves all 4 limbs Lymphatic: no nodes Psychiatric: normal affect, A&O x 3 Skin: no rash <Aubrey Hurley - Last Filed: 03/24/17 08:27> Dx/Plan (1) Pulmonary fibrosis Code(s): J84.10 - PULMONARY FIBROSIS, UNSPECIFIED Status: Acute (2) CAP (community acquired pneumonia) Code(s): J18.9 - PNEUMONIA, UNSPECIFIED ORGANISM Status: Acute (3) DM2 (diabetes mellitus, type 2) Status: Acute (4) HTN (hypertension) Code(s): I10 - ESSENTIAL (PRIMARY) HYPERTENSION Status: Acute - Plan Plan: 1. Pulmonary Fibrosis - Consulted Pulm, appreciate Dr. Anthony's recs - Continue O2 supplementation 2. CAP - Continue levaquin 3. COPD - Continue Spireva, Mometasone, Duonebs - Continue steroids 4. DM2 - Continue home meds - accuchecks 5. HTN - Continue home meds Disposition: Guarded. Will await Dr. Anthony's recs. <Aubrey Hurley - Last Filed: 03/24/17 08:27> Attending Addendum - Attending Addendum I personally evaluated the patient and discussed the management with Dr. Hurley on 03/24/17. I agree with the History, Examination, Assessment and Plan documented above with any addition or exceptions noted below- Patient feeling a little better. SOB a little better. Afebrile VSS A/P: 1) Pulmonary fibrosis- continue duonebs, O2, steroids. Appreciate pulmonary assistance. 2) CAP- continue current abx <Kellie Marin - Last Filed: 03/27/17 15:21>
[2017-03-24] MEDS: Mometasone 100 MCG HFA INHALER INH SCH ×2 (07:59→19:37)
[2017-03-24] MEDS: Amlodipine 5 MG TAB PO SCH (08:08)
[2017-03-24] MEDS: glyBURIDE 5 MG TAB PO SCH (08:08)
[2017-03-24] MEDS: metFORMIN 500 MG TAB PO SCH ×2 (08:08→17:21)
[2017-03-24] MEDS: Losartan 25 MG TAB PO SCH (08:08)
--- NOTE | 2017-03-24 09:34 | PDOC.PULPN ---
Progress Note: Subj/Obj - Subjective Date: 03/24/17 Time: 09:32 Narrative: complains of cough and congestion - ROS All systems: reviewed and no additional remarkable complaints except as stated Respiratory: cough - Objective Allergies/Adverse Reactions: Allergies Allergy/AdvReac Type Severity Reaction Status Date / Time No Known Allergies Allergy Verified 03/23/17 01:02 Medications: Current Medications Albuterol/Ipratropium (Duoneb) 3 ml NEB Q2H PRN PRN Reason: SOB &/or Wheezing Albuterol/Ipratropium (Duoneb) 3 ml NEB [id number] [facility] Last Admin: 03/24/17 07:57 Dose: 3 ml Amlodipine Besylate (Norvasc) 5 mg PO DAILY [facility] Last Admin: 03/24/17 08:08 Dose: 5 mg Aspirin (Aspirin Chewable) 81 mg PO DAILY [facility] Last Admin: 03/24/17 08:08 Dose: 81 mg Dextrose/Water (Dextrose 50%) 25 gm SLOW IVP PRN PRN PRN Reason: Hypoglycemia Glucagon (Glucagon) 1 mg IM PRN PRN PRN Reason: Hypoglycemia Glyburide (Diabeta) 5 mg PO QAM[facility] Last Admin: 03/24/17 08:08 Dose: 5 mg Guaifenesin/Dextromethorphan (Robitussin Dm) 15 ml PO Q4H PRN PRN Reason: Cough Dextrose/Water (D5w) 1,000 mls @ 0 mls/hr IV .Q0M PRN; As Directed PRN Reason: Hypoglycemia Levofloxacin 750 mg/ Device 150 mls @ 100 mls/hr IVPB 2200 [facility] Last Admin: 03/23/17 21:41 Dose: 150 mls Sodium Chloride (Normal Saline 0.9%) 1,000 mls @ 100 mls/hr IV .Q10H [facility] Last Admin: 03/24/17 00:22 Dose: 1,000 mls Losartan Potassium (Cozaar) 50 mg PO DAILY [facility] Last Admin: 03/24/17 08:08 Dose: 50 mg Metformin HCl (Glucophage) 500 mg PO BID-[facility] Last Admin: 03/24/17 08:08 Dose: 500 mg Methylprednisolone Sodium Succinate (Solu-Medrol) 40 mg IVP Q6HR [facility] Last Admin: 03/24/17 05:32 Dose: 40 mg Mometasone Furoate (Asmanex Hfa 100 Mcg) 2 puff INH BID-[facility] Last Admin: 03/24/17 07:59 Dose: 2 puff MAR Reviewed: Yes Vital Signs: Vital Signs Temp 96.7 F L 03/24/17 07:51 Pulse 67 03/24/17 08:08 Resp 18 03/24/17 07:59 BP 144/68 H 03/24/17 08:08 Pulse Ox 100 03/24/17 07:59 Intake & Output 03/23/17 03/24/17 03/24/17 18:59 06:59 18:59 Output Total 600 Balance -600 Weight 101 lb 9.6 oz 101 lb 9.6 oz Output: Urine 600 Other: Voiding Method Urinal Progress Note: Exam - Physical Exam Constitutional: NAD HEENT: PERRLA, sclera anicteric Neck: no nodes, no JVD Cardiovascular: RRR Focused Respiratory Location: rales: Right, Left Gastrointestinal: soft, non-tender Musculoskeletal: no edema Neurological: non-focal Lymphatic: no nodes Psychiatric: normal affect, A&O x 3 Skin: no rash Progress Note: Data - Labs Result Diagrams: 03/24/17 03:50 03/24/17 03:50 Lab results: Laboratory Results 03/23/17 03/23/17 03/23/17 02:20 02:55 02:55 WBC 9.7 RBC 3.06 L Hgb 9.8 L Hct 29.7 L MCV 97.2 H MCH 31.9 H MCHC 32.8 RDW 12.5 Plt Count 270 MPV 5.9 L Neutrophils % 88.6 H Lymphocytes % 8.0 L Monocytes % 3.2 Eosinophils % 0.2 Basophils % 0.0 Neutrophils # 8.6 H Lymphocytes # 0.8 L Monocytes # 0.3 Eosinophils # 0.0 Basophils # 0.0 Sodium 138 Potassium 4.0 Chloride 102 Carbon Dioxide 28 Anion Gap 12 BUN 21 Creatinine 0.82 Estimated GFR (MDRD) Greater than 90 Glucose 174 H POC Glucose 185 H Lactic Acid Calcium 8.9 03/23/17 03/23/17 03/23/17 02:55 04:56 11:03 WBC RBC Hgb Hct MCV MCH MCHC RDW Plt Count MPV Neutrophils % Lymphocytes % Monocytes % Eosinophils % Basophils % Neutrophils # Lymphocytes # Monocytes # Eosinophils # Basophils # Sodium Potassium Chloride Carbon Dioxide Anion Gap BUN Creatinine Estimated GFR (MDRD) Glucose POC Glucose 151 H 135 H Lactic Acid 2.1 Calcium 03/23/17 03/23/17 03/24/17 16:14 20:01 03:50 WBC RBC Hgb Hct MCV MCH MCHC RDW Plt Count MPV Neutrophils % Lymphocytes % Monocytes % Eosinophils % Basophils % Neutrophils # Lymphocytes # Monocytes # Eosinophils # Basophils # Sodium 134 L Potassium 4.0 Chloride 98 Carbon Dioxide 29 Anion Gap 11 BUN 12 Creatinine 0.68 Estimated GFR (MDRD) Greater than 90 Glucose 150 H POC Glucose 200 H 183 H Lactic Acid Calcium 9.0 03/24/17 03/24/17 03:50 05:29 WBC 3.7 L RBC 2.83 L Hgb 9.0 L Hct 27.4 L MCV 96.9 H MCH 31.8 H MCHC 32.8 RDW 12.5 Plt Count 242 MPV 6.3 L Neutrophils % 86.8 H Lymphocytes % 12.8 L Monocytes % 0.4 Eosinophils % 0.0 Basophils % 0.0 Neutrophils # 3.2 Lymphocytes # 0.5 L Monocytes # 0.0 L Eosinophils # 0.0 Basophils # 0.0 Sodium Potassium Chloride Carbon Dioxide Anion Gap BUN Creatinine Estimated GFR (MDRD) Glucose POC Glucose 139 H Lactic Acid Calcium Progress Note: A/P - Problems (1) Pulmonary fibrosis Current Visit: No Status: Acute Code(s): J84.10 - PULMONARY FIBROSIS, UNSPECIFIED - Plan Plan: exacerbation of IPF. Maybe some component of PNA Continue ABX and steroids. I will review his office chart
--- NOTE | 2017-03-24 13:36 | PQF ---
JAMES SCOTTADAMATT MCDONALD LANA [id number] CLINICAL DOCUMENTATION IMPROVEMENT CLARIFICATION FORM: ICD-10 Updated PLEASE DO AN ADDENDUM TO THE PROGRESS NOTE WITH ANY DOCUMENTATION UPDATES OR ADDITIONS AND CARRY THROUGH TO DC SUMMARY. THANK YOU. DATE: 03-24-17 ATTN: DR. LANA MCDONALD / DR. HUTCHINS Please exercise your independent, professional judgment in responding to the clarification form. Clinical indicators are provided on the bottom of this form for your review Please check appropriate box(s): [ ] Sepsis due to Community - acquired Pneumonia [ ] Severe sepsis with acute organ dysfunction of: (Examples: respiratory failure, encephalopathy, acute kidney failure, other) [ x ] Localized infection without sepsis [ x ] Other diagnosis _Pulmonary Fibrosis [ ] Unable to determine For continuity of documentation, please document condition throughout progress notes and discharge summary. Thank You. CLINICAL INDICATORS - SIGNS / SYMPTOMS / LABS ER: PNA; DYSPNEA; SEPSIS PULSE 110 - 124 RESP 22 - 23 O2 SAT 89 ON RA O2 SAT 94 - 98% ON 2 L NC LABS: 03-22 WBC 11.5 03-23 LACTIC ACID 2.5 H&P: COMMUNITY - ACQUIRED PNA 2-3L O2 NC AT HOME ELEVATED LACTIC ACID - COULD BE D/T DEHYDRATION LEUKOCYTOSIS , LIKELY D/T COMMUNITY-ACQUIRED PNA RISK FACTORS H&P: COMMUNITY - ACQUIRED PNA HX INTERSTITIAL LUNG DX / COPD TREATMENTS: H&P: NS 100ML / HR CONTINUE HOME INHALERS PULMONARY CONSULT CPOE / MAR: LEVAQUIN IV 03-22 / 03-23 THANK YOU, OLIVE (This form is maintained as a part of the permanent medical record) 2015 [employer]. All Rights Reserved Olive Alex RN, BS [email or web address] [facility]
--- NOTE | 2017-03-24 13:42 | PQF ---
SHAKILA SCOTT RANDALL [id number]- [id number] [id number] CLINICAL DOCUMENTATION IMPROVEMENT CLARIFICATION FORM: ICD-10 Updated PLEASE DO AN ADDENDUM TO THE PROGRESS NOTE WITH ANY DOCUMENTATION UPDATES OR ADDITIONS AND CARRY THROUGH TO DC SUMMARY. THANK YOU. Date: 03-24-17 ATTN: DR. LANA MCDONALD / DR. HUTCHINS Please exercise your independent, professional judgment in responding to the clarification form. Clinical indicators are provided on the bottom of this form for your review Please check appropriate box(s): [ ] Protein Calorie Malnutrition: [ ] Mild [ ] Moderate [ ] Severe [ ] Other Malnutrition (please specify) __ [ ] Underweight without malnutrition [ x ] Cachexia [ x ] Other diagnosis _End Stage Pulmonary Fibrosis [ ] Unable to determine CLINICAL INDICATORS - SIGNS / SYMPTOMS / LABS BMI 15.9 H&P: DYSPHAGIA W/ 30 LB WT LOSS PULM CONSULT: LOST CONSIDERABLE WEIGHT DIETARY CONSULT: R/T DYSPHAGIA * 32% wt loss in the last 1 year, reduced po intake for last 3 weeks, * BMI of 15.9 * Muscle wasting to temples and clavicles NURSING ASSESSMENT: STAGE 1 PU SACROCOCCYGEAL RISK FACTORS H&P: DYSPHAGIA HX COPD ; PULMONARY FIBROSIS TREATMENT: SPEECH CONSULT / DIETARY CONSULT SPEECH RECOMMENDATIONS: Pt with noted deficts. ENGINEERING TECHNICIAN PARKING unable to r/o silent aspiration at the bedside. Pt however appears appropriate for a modified diet and easily managed mechanical soft with thin and use of careful feeding. Pt would also benefit from ground textured meat and extra sauce. If worsening pulmonary s/sx noted or s/sx of aspiration are observed, then a reevaluation is warranted at that time. ENGINEERING TECHNICIAN PARKING to f/u and monitor diet tolerance. DIETARY RECOMMENDATIONS: 1. Continue 2000 kcal consistent carb diet type w/ textures per ENGINEERING TECHNICIAN PARKING eval. Leave off low sodium for now to promote po intake and wt gain. 2. Provide Glucerna Shakes TID. 3. Monitor electrolytes. THANK YOU, OLIVE (This form is maintained as a part of the permanent medical record) 2014 [employer]. All Rights Reserved Olive Alex, RN, BS [email or web address] Cell [facility]
[2017-03-25 04:24] LABS: #Lymphocytes 0.5 thou/uL (1.20-3.40); #Monocytes 0.1 thou/uL (0.11-0.59); #Neutrophils 5.5 thou/uL (1.40-6.50); %Basophils 0.2 % (0.0-1.0); %Eosinophils 0.2 % (0.0-10.0); %Lymphocytes 7.5 % (21.0-51.0); %Monocytes 1.7 % (0.0-10.0); %Neutrophils 90.4 % (42.0-75.0); Mean Corpuscular HGB CONC 32.8 g/dL (32.0-36.0); Mean Corpuscular Hemoglobin 31.5 pg (27.0-31.0); Mean Corpuscular Volume 96.1 fl (80.0-94.0); Mean Platelet Volume 6.3 fL (7.4-10.4); Platelet Count 249 thou/uL (130-400); RBC Distribution Width 12.3 % (11.5-14.5); Red Blood Cell (RBC) Count 2.85 mill/uL (4.70-6.10); White Blood Cell (WBC) Count 6.1 thou/uL (4.8-10.8)
[2017-03-25 04:43] LABS: Anion Gap 8 mmol/L (10-20); BUN (Urea Nitrogen) 19 mg/dL (8.4-25.7); Calc. Creatinine Clearance 56 mL/min (70-130); Carbon Dioxide 29 mmol/L (23-31); Chloride 100 mmol/L (98-107); Estimated GFR-MDRD Greater than 90; Glucose 206 mg/dL (83-110); Potassium 4.3 mmol/L (3.5-5.1); Sodium 133 mmol/L (136-145)
[2017-03-25] MEDS: Sodium Chloride 0.9% 1,000 ML IV SCH ×3 (05:29→22:03)
[2017-03-25] MEDS: Mometasone 100 MCG HFA INHALER INH SCH ×2 (06:28→18:51)
--- NOTE | 2017-03-25 06:32 | PDOC.FM ---
- Subjective Subjective: Patient complaining of persistent cough which has improved with nebulizer treatments. He states that his shortness of breath is about the same as it has been. He endorses a significant amount of weight loss in the last [address] Anthony outpatient but has only had 2 appointments with him. He is doing fairly well this AM. No significant overnight events. - Objective MAR Reviewed: Yes Vital Signs & Weight: Vital Signs (12 hours) Temp Pulse Resp BP Pulse Ox 03/25/17 03:18 97 03/24/17 20:00 97.6 F 94 20 134/74 97 Weight Admit Weight 46.085 kg Weight 46.085 kg I&O: 03/23/17 03/24/17 03/25/17 06:59 06:59 06:59 Intake Total 1221 Output Total 600 301 Balance -600 920 Result Diagrams: 03/25/17 03:55 03/25/17 03:55 EKG Reviewed by me: No Radiology Reviewed by me: Yes Phys Exam - Physical Examination Constitutional: NAD HEENT: moist MMs Neck: supple Diffuse wheezing and crackles throughout Cardiovascular: RRR systolic murmur Gastrointestinal: soft, positive bowel sounds Musculoskeletal: pulses present Neurological: non-focal, moves all 4 limbs Psychiatric: A&O x 3 Skin: cap refill <2 seconds Dx/Plan (1) COPD (chronic obstructive pulmonary disease) Status: Acute (2) CAP (community acquired pneumonia) Code(s): J18.9 - PNEUMONIA, UNSPECIFIED ORGANISM Status: Acute (3) DM2 (diabetes mellitus, type 2) Status: Acute (4) HTN (hypertension) Code(s): I10 - ESSENTIAL (PRIMARY) HYPERTENSION Status: Acute (5) Pulmonary fibrosis Code(s): J84.10 - PULMONARY FIBROSIS, UNSPECIFIED Status: Acute - Plan Plan: 1. Pulmonary Fibrosis - Consulted Pulm, appreciate Dr. Anthony's recs - Continue O2 supplementation 2. CAP - Continue levaquin and steroids 3. COPD - Continue Spireva, Mometasone, Duonebs - Continue steroids 4. DM2 - Continue home meds - accuchecks 5. HTN - Continue home meds Disposition: Guarded. Will await Dr. Anthony's recs.
[2017-03-25] MEDS: Losartan 25 MG TAB PO SCH (09:06)
[2017-03-25] MEDS: Amlodipine 5 MG TAB PO SCH (09:06)
[2017-03-25] MEDS: glyBURIDE 5 MG TAB PO SCH (09:07)
[2017-03-25] MEDS: metFORMIN 500 MG TAB PO SCH ×2 (09:07→16:58)
[2017-03-25] MEDS ORDERED: Dextrose 5% in Water 1,000 ML IV PRN (17:06)
[2017-03-25] MEDS ORDERED: Dextrose 50% Abboject 50 ML SYRINGE SLOW IVP PRN (17:06)
--- NOTE | 2017-03-25 17:06 | PRG ---
DATE OF SERVICE: 03/25/2017 SUBJECTIVE: Yolanda Bodn has no complaints. OBJECTIVE: VITAL SIGNS: His heart rate is 70. He is afebrile, blood pressure 130/58, respiratory rate 16, oxim etry is 99 on 2 liters. LUNGS: He has diffuse crackles on exam. HEART: Regular rhythm. ABDOMEN: Soft. LABORATORY DATA: White count 6.1, hemoglobin 9, platelets 249,000. Sodium 133, potassium 4.3, chlor aminah 100, bicarbonate 29, BUN 19, creatinine 0.7. IMPRESSION: 1. Pulmonary fibrosis. 2. Pneumonia, appears to be clinically improving. 3. ? silicosis. 4. Diabetes. 5. Chronic kidney disease. 6. Anemia. PLAN: Continue current care. He wanted me to tell him what Dr. Anthony's long-term plans were for h im. I explained to him that I cannot determine that at this point in time and that we have to get hi m over this acute illness before we address that. He can be switched to p.o. medications at this poi nt in my opinion.
[2017-03-25] MEDS: HumaLOG 300 UNITS/3 ML VIAL SC PRN (17:43)
--- NOTE | 2017-03-25 22:19 | ADD-PRG ---
ADDENDUM DATE OF SERVICE: 03/25/2017 Please see the progress note done by Dr. Eli for which I concur. This is an unfortunate 71-yea r-old who comes in with an exacerbation and pulmonary fibrosis, maybe a tension pneumonia, for which we have her on Levaquin and leave off of steroids, and it seems her disease is progressing, and we may get to the point now to discuss further steps, such as palliative measures or possibly even h ospice and we may have to consider placement as it sounds like he is for the most part home alone wit h girlfriend who recently broke a hip and activities of daily living are severely diminished secondar y to lung status, so may end up having to get some kind of care facility or another level of care. [facility] in [facility] will offer up to 20 hours a week of volunteer services, that may be a good o ption. We will see what pulmonary says about long-term status as well. options at this point.
[2017-03-26] MEDS: Sodium Chloride 0.9% 1,000 ML IV SCH ×3 (03:13→20:02)
[2017-03-26 05:31] LABS: #Monocytes 0.4 thou/uL (0.11-0.59); #Neutrophils 5.5 thou/uL (1.40-6.50); %Basophils 0.5 % (0.0-1.0); %Eosinophils 0.1 % (0.0-10.0); %Lymphocytes 13.9 % (21.0-51.0); %Neutrophils 79.6 % (42.0-75.0); Hemoglobin 9.5 g/dL (14.0-18.0); Mean Corpuscular HGB CONC 32.2 g/dL (32.0-36.0); Mean Corpuscular Volume 96.3 fl (80.0-94.0); Mean Platelet Volume 6.3 fL (7.4-10.4); Platelet Count 243 thou/uL (130-400); RBC Distribution Width 12.3 % (11.5-14.5); Red Blood Cell (RBC) Count 3.07 mill/uL (4.70-6.10)
[2017-03-26 05:40] LABS: Anion Gap 10 mmol/L (10-20); BUN (Urea Nitrogen) 16 mg/dL (8.4-25.7); Calc. Creatinine Clearance 73 mL/min (70-130); Calcium 9.3 mg/dL (7.8-10.44); Carbon Dioxide 29 mmol/L (23-31); Chloride 102 mmol/L (98-107); Estimated GFR-MDRD Greater than 90; Glucose 63 mg/dL (83-110); Potassium 3.8 mmol/L (3.5-5.1); Sodium 137 mmol/L (136-145)
[2017-03-26] MEDS: Mometasone 100 MCG HFA INHALER INH SCH ×2 (06:50→18:44)
--- NOTE | 2017-03-26 07:07 | PDOC.FM ---
- Objective Vital Signs & Weight: Vital Signs (12 hours) Temp Pulse Resp BP Pulse Ox 03/26/17 06:52 64 16 99 03/26/17 06:50 64 16 99 03/26/17 06:00 97.8 F 64 18 135/69 98 03/26/17 03:27 97 03/26/17 01:47 67 16 97 03/26/17 00:02 97.5 F L 67 18 136/68 98 03/25/17 20:00 98.2 F 69 18 132/66 99 Weight Admit Weight 46.085 kg Weight 46.085 kg I&O: 03/25/17 03/26/17 03/27/17 06:59 06:59 06:59 Intake Total 1221 1700 Output Total 301 1625 Balance 920 75 Result Diagrams: 03/26/17 04:27 03/26/17 04:27 Dx/Plan (1) CAP (community acquired pneumonia) Code(s): J18.9 - PNEUMONIA, UNSPECIFIED ORGANISM Status: Acute (2) COPD (chronic obstructive pulmonary disease) Status: Acute (3) DM2 (diabetes mellitus, type 2) Status: Acute (4) HTN (hypertension) Code(s): I10 - ESSENTIAL (PRIMARY) HYPERTENSION Status: Acute (5) Pulmonary fibrosis Code(s): J84.10 - PULMONARY FIBROSIS, UNSPECIFIED Status: Acute - Plan Plan: Plan: 1. Pulmonary Fibrosis - Consulted Pulm, appreciate pulm recs - Continue O2 supplementation - Palliative care consulted - CM consulted to discuss hospice 2. CAP - Continue levaquin and steroids 3. COPD - Continue Spireva, Mometasone, Duonebs - Continue steroids 4. DM2 - Continue home meds - accuchecks 5. HTN - Continue home meds Disposition: Guarded. Will await CM/palliative care consults.
[2017-03-26] MEDS: glyBURIDE 5 MG TAB PO SCH (09:06)
[2017-03-26] MEDS: Losartan 25 MG TAB PO SCH (09:07)
[2017-03-26] MEDS: Amlodipine 5 MG TAB PO SCH (09:08)
[2017-03-26] MEDS: predniSONE 20 MG TAB PO SCH (09:08)
[2017-03-26] MEDS: metFORMIN 500 MG TAB PO SCH ×2 (09:09→17:24)
--- NOTE | 2017-03-26 16:17 | ADD-PRG ---
DATE OF SERVICE: 03/26/2017 Please see the note from Dr. Eli for which I concur. The patient was seen and evaluated, maritza candelaria and discussed with the residents. Basically, no change on this gentleman. Maybe just a little b it better from his pulmonary fibrosis. Chest is significant for bilateral crackles and we are waitin g on Pulmonary decision about patient placement, etc. Still with know if he has got a PEG tube today we are going to be safe at home, but otherwise will continue the same steroids and breathing treatme nts, etc., right now.
--- NOTE | 2017-03-26 20:02 | PRG ---
DATE OF SERVICE: 03/26/2017 Mr. Bond says he is feeling a little bit better. He has no new complaints. OBJECTIVE: VITAL SIGNS: His heart rate is in the 70s. He is afebrile. Blood pressure 120/66, respiratory rate 16, oximetry is 100% on 2 liters. LUNGS: Remarkable for crackles diffusely. CARDIOVASCULAR: Regular rhythm. ABDOMEN: Soft. LABORATORY DATA: White count 7, hemoglobin 9.5, platelets 243. Sodium 137, potassium 3.8, chloride 102, bicarb 29, BUN 16, creatinine 0.59. IMPRESSION: 1. Underlying pulmonary fibrosis. 2. Pneumonia. 3. Deconditioning. PLAN: Continue current care. He is to increase time out of bed and increase his time ambulating. H e is on p.o. medications, i.e., antibiotics and steroids at this point.
[2017-03-26] MEDS: HumaLOG 300 UNITS/3 ML VIAL SC PRN (20:13)
[2017-03-27 04:23] LABS: #Lymphocytes 1.2 thou/uL (1.20-3.40); #Monocytes 0.4 thou/uL (0.11-0.59); %Basophils 0.1 % (0.0-1.0); %Eosinophils 0.1 % (0.0-10.0); %Lymphocytes 17.8 % (21.0-51.0); %Monocytes 6.3 % (0.0-10.0); %Neutrophils 75.6 % (42.0-75.0); Hemoglobin 10.8 g/dL (14.0-18.0); Mean Corpuscular HGB CONC 34.8 g/dL (32.0-36.0); Mean Corpuscular Hemoglobin 33.6 pg (27.0-31.0); Mean Corpuscular Volume 96.5 fl (80.0-94.0); Mean Platelet Volume 6.1 fL (7.4-10.4); Platelet Count 252 thou/uL (130-400); RBC Distribution Width 12.4 % (11.5-14.5); Red Blood Cell (RBC) Count 3.22 mill/uL (4.70-6.10); White Blood Cell (WBC) Count 6.6 thou/uL (4.8-10.8)
[2017-03-27 04:48] LABS: Anion Gap 8 mmol/L (10-20); BUN (Urea Nitrogen) 16 mg/dL (8.4-25.7); Calc. Creatinine Clearance 67 mL/min (70-130); Calcium 9.5 mg/dL (7.8-10.44); Carbon Dioxide 32 mmol/L (23-31); Chloride 99 mmol/L (98-107); Estimated GFR-MDRD Greater than 90; Glucose 80 mg/dL (83-110); Potassium 3.8 mmol/L (3.5-5.1); Sodium 135 mmol/L (136-145)
[2017-03-27] MEDS: Sodium Chloride 0.9% 1,000 ML IV SCH ×2 (06:10→17:15)
[2017-03-27] MEDS: Mometasone 100 MCG HFA INHALER INH SCH ×2 (06:32→19:52)
--- NOTE | 2017-03-27 06:32 | PDOC.FM ---
- Subjective Subjective: Patient states he is improved. He notes that he has not been coughing as much as he was previously. He states he still hasn't had his strength come back to be able to walk much. He also notes that his breathing isn't a ton better. He denies chest pain, n/v/d, fevers, or chills. Patient was counseled on possible Palliative care or Hospice care going forward and he is willing to talk with them. He states when he goes home he can't do much and is always tied to his oxygen. He has no other concerns at this time. - Objective Vital Signs & Weight: Vital Signs (12 hours) Temp Pulse Resp BP Pulse Ox 03/27/17 01:58 82 18 95 03/26/17 20:00 96.0 F L 82 20 135/79 96 03/26/17 18:42 74 16 98 Weight Admit Weight 46.085 kg Weight 46.085 kg I&O: 03/25/17 03/26/17 03/27/17 06:59 06:59 06:59 Intake Total 1221 1700 2100 Output Total 301 1625 1200 Balance 920 75 900 Result Diagrams: 03/27/17 03:49 03/27/17 03:49 Phys Exam - Physical Examination HEENT: PERRLA, moist MMs Neck: no nodes Fine crackles bilaterally throughout. Cardiovascular: RRR, no significant murmur Gastrointestinal: soft, non-tender, no distention, positive bowel sounds Musculoskeletal: no edema, pulses present Neurological: non-focal, normal sensation, moves all 4 limbs Lymphatic: no nodes Psychiatric: normal affect, A&O x 3 Skin: no rash Dx/Plan (1) Pulmonary fibrosis Code(s): J84.10 - PULMONARY FIBROSIS, UNSPECIFIED Status: Acute (2) CAP (community acquired pneumonia) Code(s): J18.9 - PNEUMONIA, UNSPECIFIED ORGANISM Status: Acute (3) DM2 (diabetes mellitus, type 2) Status: Acute (4) HTN (hypertension) Code(s): I10 - ESSENTIAL (PRIMARY) HYPERTENSION Status: Acute - Plan Plan: 1. Pulmonary Fibrosis - Consulted Pulm, appreciate pulm recs - Continue O2 supplementation - Palliative care consulted - CM consulted to discuss hospice 2. CAP - Continue levaquin and steroids - Transitioned to PO medications 3. COPD - Continue Spireva, Mometasone, Duonebs - Continue steroids 4. DM2 - Continue home meds - accuchecks 5. HTN - Continue home meds Disposition: Guarded. Will await Pulmonology and CM/palliative care recommendations.
[2017-03-27] MEDS: metFORMIN 500 MG TAB PO SCH ×2 (08:41→17:16)
[2017-03-27] MEDS: glyBURIDE 5 MG TAB PO SCH (08:42)
[2017-03-27] MEDS: predniSONE 20 MG TAB PO SCH (08:42)
[2017-03-27] MEDS: Amlodipine 5 MG TAB PO SCH (08:42)
[2017-03-27] MEDS: Losartan 25 MG TAB PO SCH (08:42)
[2017-03-27] MEDS ORDERED: predniSONE 20 MG TAB ONE (08:48)
--- NOTE | 2017-03-27 10:01 | PRG ---
DATE OF SERVICE: 03/27/2017 The patient is doing okay, he had no acute complaints. PHYSICAL EXAMINATION: VITAL SIGNS: Temperature 98.4, pulse 93, blood pressure 146/77, O2 sat 95% on 2 liters. HEENT: Unremarkable. NECK: No JVD. CHEST: Chest with bilateral crackles mainly posteriorly. CARDIAC: S1 and S2 regular. ABDOMEN: Soft. EXTREMITIES: No edema. LABORATORY DATA: White blood cell count 6.6, hematocrit 31, platelet count 252. Sodium 135, potassi um 3.8, chloride 99, CO2 32, BUN 16, creatinine 0.6, glucose 80. ASSESSMENT: Idiopathic pulmonary fibrosis with perhaps some degree of exacerbation. PLAN: This patient is scheduled for PFTs as an outpatient and has a follow up with me in the office in a week or two. I told him today that his condition is irreversible. Depending on his PFTs we are probably going to start him on some type of antifibrotic agent as an outpatient. This would be peter cated in early to mid-stage pulmonary fibrosis, but not indicated in later stage pulmonary fibrosis. I would advocate tapering his steroids over the next couple of weeks and then leave him on a dose of 10 mg a day. I would finish up 7 days of antibiotics and then stop.
--- NOTE | 2017-03-27 12:21 | ADD-PRG ---
DATE OF SERVICE: 03/27/2017 This is an addendum to the note of Dr. Aubrey Hurley. Unfortunately, Mr. Bond has severe pulmonar y fibrosis. He has seen Dr. Anthony and we appreciate his input. Dr. Anthony has recommended a foll owup with the patient in 2 weeks to schedule PFTs. Depending on the results, he can start him on elliott e type of antifibrotic agent. He is also recommended we taper steroids leaving him on a dose of 10 m g a day and complete 7 days of antibiotic therapy. Mr. Bond has also agreed to senior living faci lity placement for rehabilitation given his generalized deconditioning.
--- NOTE | 2017-03-27 16:45 | RAD ---
BARIUM SWALLOW ESOPHAGRAM SINGLE COLUMN: Date: 03-27-17 History: 71-year-old male with dysphagia and weight loss. Technique: Because of the patient's weakness and inability to stand for long period of time, the study was perfo rmed with patient in 45 degree semi-recumbent position. The patient swallowed thin liquid barium by c up and also by straw. Later, the patient was placed supine and turned in right posterior oblique posi tion to evaluate for reflux. The 13 mm barium tablet pill was not given because the patient stated th at he would not able swallow it; he requires much smaller pills for swallowing. FINDINGS: The lungs are hypoinflated. There are severe bilateral fibrotic changes throughout both lungs with ho neycombing. Contrast accumulates with poor clearance, in a diverticulum to the right side of the esop hagopharyngeal junction, laterally. There are mild to moderate tertiary contractions of the esophagus . No high grade stricture is identified. No reflux is identified. There is no moderate sized or large hiatal hernia. IMPRESSION: 1. 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 2. Severe pulmonary fibrosis. 3. No high grade stricture or gastroesophageal reflux visualized. 4. Mild-moderate presbyesophagus. POS: [facility]
[2017-03-27] MEDS: HumaLOG 300 UNITS/3 ML VIAL SC PRN (17:20)
[2017-03-28] MEDS: Sodium Chloride 0.9% 1,000 ML IV SCH ×2 (03:33→13:00)
--- NOTE | 2017-03-28 06:26 | PDOC.FM ---
- Subjective Subjective: Patient states he had a normal night. He states he is still coughing some and having some sputum production with it. He denies fever, chills, n/v/d. He actually asks this morning for a laxative. He states he is willing to seek NH placement because he realizes he can't take care of himself any longer. He states his breathing is basically back to baseline. No other concerns this morning. - Objective Vital Signs & Weight: Vital Signs (12 hours) Temp Pulse Resp BP Pulse Ox 03/28/17 02:23 96 03/27/17 23:58 84 16 98 03/27/17 20:00 98.2 F 85 20 128/71 99 03/27/17 19:51 85 16 98 Weight Admit Weight 46.085 kg Weight 46.085 kg I&O: 03/26/17 03/27/17 03/28/17 06:59 06:59 06:59 Intake Total 1700 2100 3540 Output Total 1625 1200 2950 Balance 75 900 590 Result Diagrams: 03/27/17 03:49 03/27/17 03:49 Phys Exam - Physical Examination Constitutional: NAD HEENT: moist MMs Neck: no nodes Fine crackles throughout Cardiovascular: RRR, no significant murmur Gastrointestinal: soft, non-tender, no distention, positive bowel sounds Musculoskeletal: no edema, pulses present Neurological: non-focal, normal sensation, moves all 4 limbs Lymphatic: no nodes Psychiatric: normal affect, A&O x 3 Skin: no rash Dx/Plan (1) Pulmonary fibrosis Code(s): J84.10 - PULMONARY FIBROSIS, UNSPECIFIED Status: Acute (2) CAP (community acquired pneumonia) Code(s): J18.9 - PNEUMONIA, UNSPECIFIED ORGANISM Status: Acute (3) DM2 (diabetes mellitus, type 2) Status: Acute (4) HTN (hypertension) Code(s): I10 - ESSENTIAL (PRIMARY) HYPERTENSION Status: Acute (5) Dysphagia Code(s): R13.10 - DYSPHAGIA, UNSPECIFIED Status: Acute - Plan Plan: 1. Pulmonary Fibrosis - Consulted Pulm, appreciate pulm recs - Continue O2 supplementation - Palliative care consulted - CM consulted to discuss goals of care - Recommended SNF placement 2. CAP - Continue levaquin and steroids - Transitioned to PO medications 3. COPD - Continue Spireva, Mometasone, Duonebs - Continue steroids 4. DM2 - Continue home meds - accuchecks 5. HTN - Continue home meds 5. Dysphagia - s/p barium swallow - No acute stricture - small filling pharyngoesophageal diverticulum present Disposition: Guarded. Will await Pulmonology and CM/palliative care recommendations.
[2017-03-28] MEDS: Mometasone 100 MCG HFA INHALER INH SCH ×2 (07:38→19:07)
[2017-03-28] MEDS: predniSONE 20 MG TAB PO SCH (09:05)
[2017-03-28] MEDS: glyBURIDE 5 MG TAB PO SCH (09:05)
[2017-03-28] MEDS: metFORMIN 500 MG TAB PO SCH ×2 (09:05→17:34)
[2017-03-28] MEDS: Amlodipine 5 MG TAB PO SCH (09:06)
[2017-03-28] MEDS: Losartan 25 MG TAB PO SCH (09:06)
--- NOTE | 2017-03-28 10:39 | PRG ---
DATE OF SERVICE: 03/28/2017 SUBJECTIVE: Mr. Bond is about the same. OBJECTIVE: VITAL SIGNS: On exam, temperature 97.7, pulse 88, respirations 16, O2 saturation 98%, blood pressure 146/81. HEENT: Unremarkable. NECK: No JVD. CHEST: Inspiratory crackles bilaterally. CARDIOVASCULAR: S1, S2 regular. ABDOMEN: Soft. EXTREMITIES: No edema. ASSESSMENT: Idiopathic pulmonary fibrosis. RECOMMENDATIONS: I believe the patient is ready for discharge. It sounds like he is probably going to a prison. It is unlikely he is going to improve. I believe he does have PFT set up as an o utpatient and we will consider antifibrotic medication in the future depending on the results of thos e PFTs.
[2017-03-28] MEDS ORDERED: Polyethylene Glycol 3350 17 GM Packet PO SCH (12:15)
[2017-03-28] MEDS: HumaLOG 300 UNITS/3 ML VIAL SC PRN ×2 (12:39→17:34)
--- NOTE | 2017-03-28 13:55 | ADD-PRG ---
DATE OF SERVICE: 03/28/2017 This is an addendum to the note of Dr. Lamine Hurley. Mr. Bond's barium swallow does show a [place]-August diverticulum as well as presbyesophagus. Giv en his significant end-stage pulmonary fibrosis he is not a surgical candidate. We would recommend s mall feedings throughout the day with soft pureed foods as well as thick shakes as a supplement. Bey ond that, he is ready for discharge. We are awaiting stent placement.
[2017-03-29] MEDS: Sodium Chloride 0.9% 1,000 ML IV SCH (00:01)
--- NOTE | 2017-03-29 06:37 | PDOC.FM ---
- Objective Vital Signs & Weight: Vital Signs (12 hours) Temp Pulse Resp BP Pulse Ox 03/29/17 01:58 100 03/28/17 20:00 97.6 F 97 22 H 131/74 100 Weight Admit Weight 46.085 kg Weight 46.085 kg I&O: 03/27/17 03/28/17 03/29/17 06:59 06:59 06:59 Intake Total 2100 3540 1585 Output Total 1200 2950 950 Balance 900 590 635 Result Diagrams: 03/27/17 03:49 03/27/17 03:49 Dx/Plan (1) Pulmonary fibrosis Code(s): J84.10 - PULMONARY FIBROSIS, UNSPECIFIED Status: Acute (2) CAP (community acquired pneumonia) Code(s): J18.9 - PNEUMONIA, UNSPECIFIED ORGANISM Status: Acute (3) DM2 (diabetes mellitus, type 2) Status: Acute (4) HTN (hypertension) Code(s): I10 - ESSENTIAL (PRIMARY) HYPERTENSION Status: Acute (5) Dysphagia Code(s): R13.10 - DYSPHAGIA, UNSPECIFIED Status: Acute - Plan Plan: 1. Pulmonary Fibrosis - Consulted Pulm, appreciate pulm recs - Continue O2 supplementation - Palliative care consulted - CM consulted to discuss goals of care - Recommended SNF placement 2. CAP - Continue levaquin and steroids - Transitioned to PO medications 3. COPD - Continue Spireva, Mometasone, Duonebs - Continue steroids 4. DM2 - Continue home meds - accuchecks 5. HTN - Continue home meds 5. Dysphagia - s/p barium swallow - No acute stricture - small filling pharyngoesophageal diverticulum present Disposition: Guarded. Will await placement.
[2017-03-29] MEDS: Mometasone 100 MCG HFA INHALER INH SCH (06:51)
[2017-03-29] MEDS: metFORMIN 500 MG TAB PO SCH (08:13)
[2017-03-29] MEDS: glyBURIDE 5 MG TAB PO SCH (08:13)
[2017-03-29] MEDS: Amlodipine 5 MG TAB PO SCH (08:14)
[2017-03-29] MEDS: predniSONE 20 MG TAB PO SCH (08:14)
[2017-03-29] MEDS: Losartan 25 MG TAB PO SCH (08:14)
[2017-03-29] MEDS ORDERED: Polyethylene Glycol 3350 17 GM Packet PO SCH (09:00)
--- NOTE | 2017-03-29 11:58 | PRG ---
DATE OF SERVICE: 03/29/2017 Ms. Bond remains clinically stable. No new problems or new distress. We are awaiting stent placeme nt.
[2017-03-29 16:58] VITALS: BP 120/80; TEMP 97.6
[2017-03-29] MEDS ORDERED: metFORMIN 500 MG TAB PO SCH (17:00)
--- NOTE | 2017-03-30 00:30 | DIS-2 ---
DATE OF ADMISSION: 03/23/2017 DATE OF DISCHARGE: 03/29/2017 RESIDENT: Aubrey Hurley MD ADMITTING ATTENDING: Kellie Marin M.D. DISCHARGE ATTENDING: Alli Will MD CONSULTATIONS: Consults were with Pulmonology, Dr. Anthony; case management; palliative care; PT evaluation and treatment; and speech evaluation and treatment. PROCEDURES: The patient underwent a chest x-ray on 03/22/2017 that showed extensive interstitial fibrotic lung changes with honeycombing. Given extensive parenchymal lung changes and acute process, it would be difficult to exclude, but there is greater patchy increased density in the left perihilar region, which may represent superimposed more acute infectious process. The patient also underwent a barium swallow study on 03/27/2017 that showed a right-sided pharyngoesophageal diverticulum, this is probably a [place]- August diverticulum and less likely to be a Zenker's diverticulum. Also, severe pulmonary fibrosis, no high-grade stricture of the esophageal reflux visualized and mild moderate presbyesophagus. PRIMARY DIAGNOSES: 1. Pulmonary fibrosis. 2. Community-acquired pneumonia. 3. Diabetes mellitus type 2. 4. Hypertension. 5. Dysphagia. DISCHARGE MEDICATIONS: 1. Albuterol sulfate 200 mcg puff inhalation. 2. Aspirin 81 mg. 3. Losartan potassium 50 mg. 4. Amlodipine 5 mg. 5. Glyburide 2.5 mg. 6. DuoNebs 3 mL q.6 hours. 7. Metformin 1000 mg b.i.d. 8. Prednisone 20 mg q.a.m. DISCONTINUED MEDICATIONS: Metformin 500 mg. HISTORY OF PRESENT ILLNESS AND HOSPITAL COURSE: This is a 71-year-old male with past medical history of pulmonary fibrosis, diabetes type 2 and hypertension, who presents complaining of shortness of breath that started getting worse several weeks ago and he has been coughing, but has been getting worse and productive brown sputum that is foul smelling. The patient reports no fevers. He reports that his inhaler makes the shortness of breath better, walking makes it worse. He also reports that his ribs hurt from coughing and shortness of breath is worse when he lies down because he feels like he has to cough more. He wakes up at night coughing often. The patient reports that his throat feels tight and he has lost 30 pounds in the last couple of months. In the ER, he was given Levaquin 750 mg and DuoNebs. During this hospitalization, the patient has had some notable lab values of a white blood cell count of 11.5 on day of admission that trended down to 6.6. He also had hemoglobin that ranged from 9.0 to 10.8. The patient also had a glucose that ranged from 63 to as high as 206. A lactic acid of 2.5 that trended down to 2.1. The patient was seen in consultation with Pulmonology, Dr. Anthony, who is his outpatient computer information science professor. He had a long discussion about his pulmonary fibrosis and his prognosis from the disease as we stating that this disease has progressed to the point that no medications would likely be helpful for this patient, but he does have some outpatient pulmonary function test scheduled for next week as the patient should keep as regularly scheduled. Dr. Anthony recommended keeping the steroids, the antibiotics, and the DuoNebs on going forward. The antibiotics were stopped after 7 days, but he will continue on DuoNebs and steroids long-term as an outpatient per Dr. Anthony's recommendations. The patient also stated that he was having a 60-pound weight loss in the last 6 months basically since the diagnosis of his pulmonary fibrosis. He also stated that he was having difficulty swallowing especially some of his pills, he had to grind up and eat in pudding or in liquid, so the Barium swallow study was ordered and basically showed normal results with a small diverticulum, but no stricture or no obstructing mass that would be causing any difficult problems with his swallowing. Basically, his weight loss has been attributed to his lung disease and his work of breathing, and the fact that he just has not had an appetite "because of his severe lung disease." The patient continued to improve during the hospitalization. His oxygen requirement basically went back down to his normal of 2 liters of oxygen at all times and his coughing subsided with improvement in his sputum production. The patient then was counseled extensively on his disease and is likely dismal prognosis and at that time it was decided that long-term care facility placement was to be pursued. The patient was seen by PT and by Speech Therapy, both had recommended longterm facility placement for further rehabilitation and treatment. The patient otherwise had no further complications during this hospitalization and was discharged to [facility] for long-term care. DISPOSITION: Guarded. DISCHARGE INSTRUCTIONS: 1. Location: To be discharged to a [facility]iary, [facility] in [facility]. 2. Diet: Diet will be regular diet with no restrictions. 3. Activity: Activity will be with cardiopulmonary restrictions as he is not able to walk a great distance because of the severe lung disease without getting short-winded. 4. Followup: Follow up will be with [facility] within 1 week to ensure he has made a improvement of his symptoms as well as with Dr. Jj Anthony with Pulmonology in 7 days to discuss the further treatment of his pulmonary fibrosis and pulmonary function tests that have been scheduled previously. We wish this tonio the best of luck and hope has no further complications from his disease. PHILIP
--- NOTE | 2017-04-15 17:34 | EKG ---
Test Reason : Blood Pressure : / mmHG Vent. Rate : 114 BPM Atrial Rate : 114 BPM P-R Int : 142 ms QRS Dur : 082 ms QT Int : 314 ms P-R-T Axes : 026 -02 035 degrees QTc Int : 432 ms Sinus tachycardia Otherwise normal ECG Confirmed by BENJAMIN ALFARO ([id number]), avid editor PRESTON SANCHEZ ([id number]) on 04/15/2017 5:33:32 PM Referred By: ANGELINA Confirmed By:BENJAMIN AFLARO
== END 2017-03-29 17:37 | DRG 196 ==
LOC: ERS 21:12 → T4-A 23:59
PROVIDERS: ADMIT Emergency Medicine; ATTEND Emergency Medicine
DX: J84.112 Idiopathic pulmonary fibrosis (principal); J18.9 Pneumonia, unspecified organism; R64 Cachexia; E11.40 Type 2 diabetes mellitus with diabetic neuropathy, unspecified; E11.22 Type 2 diabetes mellitus with diabetic chronic kidney disease; R13.10 Dysphagia, unspecified; Z68.1 Body mass index [BMI] 19.9 or less, adult; D64.9 Anemia, unspecified; J44.9 Chronic obstructive pulmonary disease, unspecified; Z87.891 Personal history of nicotine dependence; Z79.84 Long term (current) use of oral hypoglycemic drugs; Z79.82 Long term (current) use of aspirin; Z79.51 Long term (current) use of inhaled steroids; I12.9 Hypertensive chronic kidney disease with stage 1 through stage 4 chronic kidney disease, or unspecified chronic kidney disease; N18.2 Chronic kidney disease, stage 2 (mild); K22.8 Other specified diseases of esophagus; K57.90 Diverticulosis of intestine, part unspecified, without perforation or abscess without bleeding; Z51.5 Encounter for palliative care; Z99.81 Dependence on supplemental oxygen
CPT/HCPCS: 36415; 36416; 71045; 74220; 80048; 80053; 83605; 84145; 85025; 87040; 93005; 94640; 94760; 96365; G8978-GP-CJ; G8979-GP-CI; G8987-GO-CI; G8988-GO-CI; G8989-GO-CI; G8996-GN-CJ; G8997-GN-CJ; J1956; J2920; J7506; J7620; J7644